=== PATIENT | female | born 1960 | race Two or more races ===

== ENCOUNTER → 2018-10-18 | Day surgery (SDC) | payer MEDICAID ==
[~2018-10-18] VITALS: Ht 162.6 cm; Wt 85.7 kg
[~2018-10-18] MED LIST: ACCU-CHEK COMFORT CURVE STRIP VI ONE; EPINEPHrine HCL 0.5 ML NEB NEB ONE; EPINEPHrine HCL 0.5 ML NEB ONE; HYDROmorphone HCL 2 MG/ML VL IV PRN; METOCLOPRAMIDE HCL 5MG/ml INJ 2ml VIAL IV ONE; ROPIVACAINE 0.5% (5MG/ML) 20ML AMPULE IJ ONE; ceFAZolin 1GM/50ML 50 ML IV ONE
[2018-10-18 08:21] LABS: Basophils # (auto) 0.1 uL; Basophils % (auto) 0.9 % (0.0-2.0); Eosinophils # (auto) 0.2 uL; Eosinophils % (auto) 2.7 % (0.0-7.0); Hematocrit 35.3 % (36.0-46.0); Hemoglobin 11.5 g/dL (12.2-16.2); Lymphocytes # (auto) 1.6 uL; Lymphocytes % (auto) 27.6 % (10.0-50.0); Mean Corpuscular Hemoglobin 28.1 pg (28.0-32.0); Mean Corpuscular Hgb Conc. 32.5 g/dL (32.0-36.0); Mean Corpuscular Volume 86.6 fL (80.0-100.0); Monocytes # (auto) 0.4 uL; Monocytes % (auto) 6.8 % (0.0-12.0); Neutrophils # (auto) 3.7 uL; Nucleated Red Blood Cells % 0.1 %; Platelet Count (auto) 243 10^3/uL (140-450); Red Blood Cells 4.08 10^6/uL (4.0-5.20); Red Cell Distribution Width 17.8 % (11.8-14.3); White Blood Cell 5.9 10^3/uL (4.4-10.8)
[2018-10-18 08:38] LABS: BUN/Creatinine Ratio 35.2; Calcium 8.6 mg/dL (8.5-10.1); Potassium 3.6 mmol/L (3.5-5.1)
[2018-10-18 08:47] LABS: INR 0.98 (0.9-1.15); Partial Thromboplastin Time 25.4 sec (23.78-33.04)
[2018-10-18 11:41] VITALS: BP 137/77
== END | disposition home or self-care (01) ==
LOC: SUR 06:56
PROVIDERS: ATTEND Podiatrist Foot & Ankle Surgery
DX: M20.41 Other hammer toe(s) (acquired), right foot (principal); M20.42 Other hammer toe(s) (acquired), left foot; E11.65 Type 2 diabetes mellitus with hyperglycemia; M89.9 Disorder of bone, unspecified; D64.9 Anemia, unspecified; I10 Essential (primary) hypertension
CPT/HCPCS: 28285; 36415; 71045; 80048; 82962; 85025; 85610; 85730; 94640; J0690; J2795; L3260